=== PATIENT | female | born 1935 | race Caucasian/White ===

== ENCOUNTER 2018-02-21 08:00 | Outpatient (CLI) | payer MEDICARE, OTHER | END 2018-02-21 23:59 | disposition home or self-care (01) | LOC: D.US 08:00 | DX: R60.0 Localized edema (principal); M79.605 Pain in left leg; M79.604 Pain in right leg ==

== ENCOUNTER → 2018-02-24 16:54 | Outpatient (CLI) | payer MEDICARE, OTHER | END | disposition home or self-care (01) | LOC: D.MAMMO 16:00 | DX: Z12.31 Encounter for screening mammogram for malignant neoplasm of breast (principal) ==

== ENCOUNTER → 2018-03-05 13:14 | Outpatient (CLI) | payer MEDICARE, OTHER | END | disposition home or self-care (01) | LOC: D.CT 13:14 | DX: R60.0 Localized edema (principal) ==